=== PATIENT | female | born 1940 | race Caucasian/White ===

== ENCOUNTER → 2024-02-15 | Outpatient (CLI) | payer MEDICARE ==
--- NOTE | 2024-02-15 13:11 | CT ---
EXAMINATION TYPE: CT chest wo con CT DLP: 242 mGycm, Automated exposure control for dose reduction was used. DATE OF EXAM: 02/15/2024 12:54 PM COMPARISON: None CLINICAL INDICATION:Female, 84 years old with history of R91.1 SOLITARY PULMONARY NODULE; PHH, Solita ry Pulmonary Nodule TECHNIQUE: Multiple axial images were obtained through the chest without IV contrast. Lack of IV or o ral contrast limits evaluation of solid and hollow organ viscera. . Coronal and sagittal reformats re viewed. FINDINGS: LUNGS/ PLEURA: Biapical pleural-parenchymal scarring with calcified pleural plaques. Moderate centril obular emphysematous changes. Right lower lobe solid 8.7 mm pulmonary nodule (series 4, image 45). No pneumothorax or pleural effusion. Few punctate scattered micronodules identified. AIRWAY: Patent and unremarkable.. HEART: Size within normal limits.No pericardial effusion. Small coronary calcifications. MEDIASTINUM: No gross evidence of adenopathy. VASCULATURE: No aortic aneurysm. Atherosclerotic calcification of the aorta and its branches. MUSCULOSKELETAL: No acute osseous abnormalities. Diffuse bone demineralization. Multilevel chronic ap pearing compression deformities involving the T7, T8, and T11 vertebral bodies. There is approximatel y 3 mm retropulsion of the T11 vertebral body. Greatest height loss identified involving the T8 verte bral body with approximately 40% height loss. SOFT TISSUES/LYMPH NODES: Unremarkable. LOWER NECK: No significant findings. UPPER ABDOMEN: Small hiatal hernia. IMPRESSION: 1. Right lower lobe 8.7 mm solid pulmonary nodule. Additional few scattered punctate micronodules. N o prior imaging available comparison. PET/CT is recommended. 2. Moderate centrilobular emphysematous changes with biapical pleural parenchymal scarring and calci fied plaques. 3. Multilevel chronic appearing compression deformities of the thoracic spine. Correlate with point tenderness. [facility], , 02/15/2024 1:09 PM
== END | disposition home or self-care (01) ==
LOC: RADCTMAIN 12:14
PROVIDERS: ATTEND Internal Medicine Critical Care Medicine
DX: R91.1 Solitary pulmonary nodule (principal); J43.2 Centrilobular emphysema; M48.54XA Collapsed vertebra, not elsewhere classified, thoracic region, initial encounter for fracture; K44.9 Diaphragmatic hernia without obstruction or gangrene; I70.0 Atherosclerosis of aorta
CPT/HCPCS: 71250